=== PATIENT | female | born 1945 | race Caucasian/White ===

== ENCOUNTER → 2016-10-18 | Outpatient (CLI) | payer OTHER | LOC: BMCIMAGING 12:57 | PROVIDERS: ATTEND Family Medicine | DX: Z12.31 Encounter for screening mammogram for malignant neoplasm of breast (principal) | CPT/HCPCS: G0202 ==

== ENCOUNTER → 2017-11-03 | Outpatient (CLI) | payer OTHER | LOC: FIMAGING 15:58 | PROVIDERS: ATTEND Family Medicine | DX: Z12.31 Encounter for screening mammogram for malignant neoplasm of breast (principal) ==

== ENCOUNTER → 2018-08-01 | Day surgery (SDC) | payer OTHER ==
[~2018-08-01] MED LIST: ASPIRIN EC 325 MG TAB PO ONE; ATROPINE SULFATE 1 MG/10 ML SYR IVP PRN; DIAZEPAM 5 MG TAB PO ONE; FAMOTIDINE 20 MG TAB PO ONE; IOPAMIDOL (ISOVUE 370) 100 ML BTL IV ONE; LIDOCAINE 1% 5 ML SDV ONE; MIDAZOLAM 2 MG/2 ML VIAL ONE; NITROGLYCERIN 0.4 MG BTL SL PRN; NS 1,000 ML IV ONE; ONDANSETRON 4 MG/2 ML VIAL ONE; diphenhydrAMINE 25 MG CAP PO ONE; fentaNYL 100 MCG/2 ML INJ ONE
[2018-08-01 13:22] LABS: PLATELET COUNT 259 10^3/uL (150-400)
[2018-08-01 13:40] LABS: INR 0.96 (0.83-1.16); PROTIME(PATIENT) 12.4 SEC (12.0-15.0)
--- NOTE | 2018-08-01 14:25 | PDHPUP ---
History & Physical Update H&P update statement: This history and physical update is based on an assessment of the patient which was completed after admission or registration (within 24 hours), but prior to the surgery/procedure. H&P update: H&P reviewed & patient examined, no change in patient's condition since H&P completed
--- NOTE | 2018-08-01 14:25 | PDPROPOC ---
Sedation Plan of Care Sedation Plan of Care: vital signs stable, mental status noted, patient educated of risks, benefits, alternatives, patient can tolerate sedation ASA Classification: ASA 1 Planned drugs: fentanyl, midazolam Mallampati Score: Class 1 Mallampati Reference Image: Patient passed 3-3-2 rule?: Yes
--- NOTE | 2018-08-01 15:53 | PDDXCAT ---
Diagnostic Cath Note - . Date: 08/01/18 [employer]: Libra Indication: other (2 recent hospitalizations with resting chest discomfort consistent with unstable angina associated with elevated cardiac biomarkers. ) - Procedure Access: right groin Procedure: left heart catheterization, coronary angiography, left ventriculogram , other (Non selective renal angiogram.) - Materials Left Heart Cath size: 6F Left Heart Cath materials: standard multipack (JL4, JR4, pigtail) (Pancho right catheter) - Findings-Left Heart Catheterization LM: Short vessel with normal angiographic appearance and appropriate bifurcation into left anterior descending and circumflex distributions. LAD: Moderate caliber vessel in the proximal and mid segments becoming a very small caliber distal vessel. 3 small diagonal branches are identified. The distal two diagonal branches are also noted to be very small in caliber. LCX: Large caliber dominant vessel. For obtuse marginal branches, a small posterolateral branch and the PDA are noted. 2nd obtuse marginal branch is a large caliber vessel. The circumflex and its branch vessels are angiographically normal. RCA: Small-caliber nondominant vessel without significant stenosis. LVEF: Greater than 70%. A non selective renal arteriogram was performed identifying single renal arteries bilaterally without any significant stenoses. Wall motion: Normal. Complications: None. Estimated blood loss: <50ml Closure method: Angioseal Assessment: 1. No significant large vessel epicardial CAD. 2. Very small caliber distal LAD involving the 2 most distal diagonal branches. 3. Hyperdynamic left ventricular systolic function with an ejection fraction above 70%. 4. No evidence of renal artery stenosis. 5. 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 Plan: Will continue to optimize medical therapy and evaluate the patient for secondary causes of hypertension. Intervention: None.
--- NOTE | 2018-08-03 11:56 | CPEKG ---
Test Reason : OPEN Blood Pressure : / mmHG Vent. Rate : 067 BPM Atrial Rate : 067 BPM P-R Int : 205 ms QRS Dur : 093 ms QT Int : 411 ms P-R-T Axes : 070 068 089 degrees QTc Int : 434 ms Sinus rhythm Low voltage, extremity leads Nonspecific T abnormalities, lateral leads Confirmed by Orlin Campos ([id number] on 08/03/2018 11:55:47 AM Referred By: Kolby Smyth Confirmed By:Orlin Campos
== END | disposition home or self-care (01) ==
LOC: FCATH 12:50
PROVIDERS: ATTEND Internal Medicine Cardiovascular Disease
DX: I20.8 Other forms of angina pectoris (principal); R78.89 Finding of other specified substances, not normally found in blood; I10 Essential (primary) hypertension
CPT/HCPCS: C1760; J1644; J2250; J2405; J3010; Q9967